=== PATIENT | male | born 1955 | race Caucasian/White ===

== ENCOUNTER 2017-03-20 11:48 | Emergency (ER) | payer OTHER ==
--- NOTE | 2017-03-20 13:43 | ER Document Report ---
ED Respiratory Problem - General Chief Complaint: Rib Pain Stated Complaint: RIGHT SIDE RIB PAIN Time Seen by Provider: 03/20/17 13:25 Mode of Arrival: Ambulatory Information source: Patient Notes: 61-year-old male presents to ED for pain in his right rib. He states he was lifting large pallets of milk on Monday when the pain started. He states he also had large amounts of blood in his urine on Monday and today. He states he went to his [employer]. doctor and they told him his blood pressure was elevated and he needed to come to the emergency room. He states that he had a stroke 3 or 4 years ago he had some muscle strain elevated blood pressure and has had surgery on hemorrhoids and left knee meniscus. He denies any other medical history. TRAVEL OUTSIDE OF THE [place] IN LAST 30 DAYS: No - HPI Patient complains to provider of: Hurts to breath, Short of breath, Other - Right ribs abdomen and flank pain Onset: Other - Monday Duration: Continuous, Worse/persistent Initiating Event: Other - Injury on Monday Quality of pain: Sharp, Throbbing Severity: Severe Pain Level: 5 Context: Smoker, Other - States he was lifting large polyps of milk on Monday and the pain is been since then. He also has had blood in his urine Monday and today Short of Breath: Moderate Chest pain/discomfort: Constant, Worse with deep breaths Cough: Nonproductive Sputum amount: None Associated symptoms: Other - Hematuria, right rib flank abdomen and back pain Worsened by: Movement sitting lying down Similar symptoms previously: Yes Recently seen / treated by doctor: Yes - Related Data Allergies/Adverse Reactions: No Known Allergies Allergy (Verified 03/20/17 12:07) Past Medical History - General Information source: Patient - Social History Smoking Status: Current Every Day Smoker Cigarette use (# per day): Yes - Pack per day Chew tobacco use (# tins/day): No Smoking Education Provided: Yes - less than 2 minutes Frequency of alcohol use: None Drug Abuse: None 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 Family History: Hypertension Patient has suicidal ideation: No Patient has homicidal ideation: No - Past Medical History Cardiac Medical History: Reports: Hx Hypertension Pulmonary Medical History: Reports: None EENT Medical History: Reports: None Neurological Medical History: Reports: Hx Cerebrovascular Accident - 3 or 4 years ago Endocrine Medical History: Reports: None Renal/ Medical History: Reports: Hx Kidney Stones Malignancy Medical History: Reports None GI Medical History: Reports: None Musculoskeltal Medical History: Reports Hx Musculoskeletal Deformity, Reports Hx Musculoskeletal Trauma Skin Medical History: Reports None Psychiatric Medical History: Reports: None Traumatic Medical History: Reports: None Infectious Medical History: Reports: None Past Surgical History: Reports: Hx Orthopedic Surgery - Left knee meniscus, Other - Internal and external hemorrhoid removal - Immunizations Hx Diphtheria, Pertussis, Tetanus Vaccination: No Review of Systems - Review of Systems Constitutional: No symptoms reported EENT: No symptoms reported Cardiovascular: No symptoms reported Respiratory: Cough, Hurts to breathe, Short of breath Gastrointestinal: Abdominal pain Genitourinary: Flank pain, Hematuria Male Genitourinary: No symptoms reported Musculoskeletal: Back pain Skin: No symptoms reported Hematologic/Lymphatic: No symptoms reported Neurological/Psychological: No symptoms reported -: Yes All other systems reviewed and negative Physical Exam - Vital signs Vitals: Temp Pulse Resp BP Pulse Ox 98.1 F 78 20 190/98 H 96 03/20/17 12:05 03/20/17 12:05 03/20/17 12:05 03/20/17 12:05 03/20/17 12:05 Interpretation: Normal - General General appearance: Appears well, Alert - HEENT Head: Normocephalic, Atraumatic Eyes: Normal Pupils: PERRL - Respiratory Respiratory status: No respiratory distress Chest status: Tender, Pain on movement, Pain with cough, Pain with deep breathing, Other - Hurts to lay down or sit down Breath sounds: Normal Chest palpation: Normal - Cardiovascular Rhythm: Regular Heart sounds: Normal auscultation Murmur: No - Abdominal Inspection: Normal Distension: No distension Bowel sounds: Normal Tenderness: Tender. No: McBurney's point, Miller's sign, Guarding, Rebound Organomegaly: No organomegaly - Back Back: Normal, Tender. No: Deformity/step-off, CVA tenderness, Vertebra tenderness, Scars, Scoliosis, Wounds - Extremities General upper extremity: Normal inspection, Nontender, Normal color, Normal ROM , Normal temperature General lower extremity: Normal inspection, Nontender, Normal color, Normal ROM , Normal temperature, Normal weight bearing. No: Abril's sign - Neurological Neuro grossly intact: Yes Cognition: Normal Orientation: AAOx4 Madelyn Coma Scale Eye Opening: Spontaneous Madelyn Coma Scale Verbal: Oriented Chandler Coma Scale Motor: Obeys Commands Madelyn Coma Scale Total: 15 Speech: Normal Motor strength normal: LUE, RUE, LLE, RLE Sensory: Normal - Psychological Associated symptoms: Normal affect, Normal mood - Skin Skin Temperature: Warm Skin Moisture: Dry Skin Color: Normal Course - Re-evaluation Re-evalutation: 03/20/17 20:20 I have discussed this patient's x-rays and labs as they have returned with Dr. Torres. The CT abdomen pelvis and chest were ordered is positive chest x- ray and hematuria. Discussed the results of the CT abdomen and pelvis and and chest with patient as well as the lab results that showed he has metastatic cancer and aortic aneurysm renal failure and a pleural effusion with Dr. Torres and then with the patient. After discussing the CT and lab work with the patient, patient became very tearful and upset and stated he needed to go home right now and think this over. Patient states he could not be transferred he needed to go home and think everything out before he received any more treatment. Dr. Torres was was asked to come in and speak with the patient. She reiterated that for the concerns with him going home and with the risk with him going home. Patient was adamant that he wanted to go home and think about what we have told him. He states he understands the risk that he needs to go home. He requested that oncology be called. Dr. Smith was called and given a review of the findings. Dr. Smith said that the patient should call him and schedule a follow-up visit to discuss the results and the plan of care. Patient was given a copy of all labs x-ray and CT. He was given name and number for Dr. Smith. He states he will call the doctor when he can grasp what is going on. Patient was adamant that he did not want to stay in the hospital or be transferred. Patient was given an lisinopril for his blood pressure and a prescription for lisinopril and Percocet for his pain and blood pressure and discharged home AGAINST MEDICAL ADVICE. - Vital Signs Vital signs: Temp Pulse Resp BP Pulse Ox 98.2 F 78 15 198/108 H 98 03/20/17 20:08 03/20/17 20:08 03/20/17 20:08 03/20/17 20:08 03/20/17 20:08 - Laboratory Result Diagrams: 03/20/17 16:45 03/20/17 16:45 Laboratory results interpreted by me: 03/20/17 03/20/17 03/20/17 14:30 16:45 16:45 RDW 15.3 H Plt Count 40 L Lymphocytes % 12.8 L Chloride 108 H Carbon Dioxide 21 L BUN 55 H Creatinine 3.79 H Est GFR ( Amer) 20 L Est GFR (Non-Af Amer) 16 L Total Bilirubin 2.3 H Direct Bilirubin 0.5 H AST 85 H Urine Protein >=500 H Urine Blood LARGE H Ur Leukocyte Esterase TRACE H - Diagnostic Test Radiology reviewed: Image reviewed, Reports reviewed Discharge - Discharge Clinical Impression: Pleural effusion, Abdominal aortic aneurysm 5.8 cm, Nonobstructing kidney stones both kidney, extensive pelvic adenopathy most likely malig, 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 At this time you have elected to go home instead of being transferred to a tertiary hospital. I have called the oncologist as we discussed and given him the results of your labs and CAT scan. He will be expecting you to call tomorrow for the next day to schedule an appointment for follow-up. I will send you home with blood pressure medicine lisinopril. Pain medication Percocet. Instructions to follow-up with the oncologist. HIGH BLOOD PRESSURE REQUIRING TREATMENT: Your blood pressure is high. This is called "hypertension." Today's reading was __190/98 (normal is less than 140/90). Your history and exam suggest that this is not a temporary problem. You need treatment of your blood pressure. If left untreated, high blood pressure greatly increases your risk of heart attack and stroke. Please don't ignore this problem. If you have blood pressure medicine but aren't using it regularly, start taking it again. Some simple things you can do to help are: Get some aerobic exercise for at least 20 minutes on a daily basis. (See your doctor before beginning any new exercise program.) Eat a low-fat diet. Lose excess weight. Avoid salty foods and avoid adding salt to any of the foods you eat. Avoid diet pills, decongestants, "energizing" herbs, and other medicines that elevate blood pressure. There are many different medicines that treat blood pressure. If your medication causes unpleasant side effects, call your doctor. There are others you can try. Treating hypertension is a life-long investment in your health. ANGIOTENSIN CONVERTING ENZYME INHIBITOR MEDICATION: "CAROLINE inhibitor" drugs are used to lower high blood pressure (or to reduce the "work" of the heart in patients with heart failure). These drugs block an enzyme that makes your blood vessels constrict and makes you retain salt. The result is lower blood pressure. CAROLINE inhibitors cause few side effects. The most common side effect is a dry nagging cough. Occasionally, lightheadedness may occur while you get used to the medicine. Some patients may retain extra potassium (this is a problem if you are taking potassium supplements, potassium-containing salt substitutes, or a potassium-retaining drug such as triamterene, spironolactone, or amiloride) . If you are taking lithium, the lithium level must be rechecked after starting an CAROLINE inhibitor. CAROLINE inhibitors should NOT be used during . Contact the doctor or return if you develop severe lightheadedness, wheeze , weakness, palpitations or other new symptoms. Aortic Aneurysm We have found an aortic aneurysm. This is a dilation of the aorta. About 1 of every 50 people develop an aortic aneurysm. The aneurysm can be dangerous if it begins to expand, or ruptures. At this time, there's no immediate danger. If an aortic aneurysm is small (less than two inches in width), we can just check the aneurysm again in a few months. Usually, we do this with an ultrasound or CT scan. If the aneurysm is large, the danger of rupture increases dramatically. Rupture is usually fatal. So large aneurysms are fixed with surgery. We'll arrange for you to see a specialist for repair of your aneurysm. Return at once if you develop abdominal pain, back pain, or lightheadedness , or if you feel a new mass in your abdomen Oral Narcotic Medication You have been given a prescription for pain control. This medication is a narcotic. It's best taken with food, as nausea can result if taken on an empty stomach. Don't operate machinery or drive within six hours of taking this medication. Do not combine this medicine with alcohol, or with any medication which can cause sedation (such as cold tablets or sleeping pills) unless you get permission from the physician. Narcotics tend to cause constipation. If possible, drink plenty of fluids and eat a diet high in fiber and fruits. FOLLOW-UP CARE: If you have been referred to a physician for follow-up care, call the physician s office for an appointment as you were instructed or within the next two days. If you experience worsening or a significant change in your symptoms, notify the physician immediately or return to the Emergency Department at any time for re-evaluation. Prescriptions: Lisinopril 20 mg PO DAILY #30 tablet Oxycodone HCl/Acetaminophen [Percocet 5-325 mg Tablet] 1 - 2 tab PO ASDIR PRN # 25 tablet PRN Reason: Forms: Elevated Blood Pressure, Smoking Cessation Education Referrals: SADIA SMITH MD [ACTIVE STAFF] - Follow up as needed
--- NOTE | 2017-03-20 14:33 | RADIOLOGY REPORT (SQ) ---
EXAM DESCRIPTION: RIBS RIGHT W/PA CHEST COMPLETED DATE/TIME: 03/20/2017 2:07 pm REASON FOR STUDY: pain to right chest and back after lifting at work COMPARISON: None. TECHNIQUE: Frontal view of the chest and additional views of the right ribs acquired. NUMBER OF VIEWS: Three view. LIMITATIONS: None. FINDINGS: FRONTAL CXR: There is a right pleural effusion. No evidence of pneumothorax. No consolid ation. RIBS: No displaced rib fractures. No lytic or blastic bony lesions. OTHER: No other significant finding. IMPRESSION: No displaced rib fractures. There is a small right pleural effusion. COMMENT: SITE OF TRAUMA/COMPLAINT MARKED/STAMP COMPLETED: NO. TECHNICAL DOCUMENTATION: JOB ID: [id number] [employer]- All Rights Reserved
[2017-03-20 15:34] LABS: APPEARANCE,URINE CLOUDY; BILIRUBIN,URINE NEGATIVE (NEGATIVE); GLUCOSE, URINE NEGATIVE (NEGATIVE); KETONES,URINE NEGATIVE (NEGATIVE); URINE SPECIFIC GRAVITY 1.014
[2017-03-20 15:35] LABS: LEUKOCYTE ESTERASE,URINE TRACE (NEGATIVE); NITRITE,URINE NEGATIVE (NEGATIVE); PROTEIN,URINE >=500 mg/dL (NEGATIVE); UROBILINOGEN,URINE NEGATIVE mg/dL (<2.0)
[2017-03-20 15:36] LABS: RBC,URINE TOO NUMEROUS TO CNT /HPF
[2017-03-20] MEDS ORDERED: OXYCODONE-ACETAMINOPHEN 5-325 MG TABLET PO ONE (16:36)
[2017-03-20 17:00] LABS: ABSOLUTE BASOPHILS # (AUTO) 0.1 10^3/uL (0.0-0.2); ABSOLUTE EOSINOPHILS # (AUTO) 0.2 10^3/uL (0.0-0.6); ABSOLUTE LYMPHOCYTES (AUTO) 1.3 10^3/uL (0.5-4.7); ABSOLUTE MONOCYTES (AUTO) 1.1 10^3/uL (0.1-1.4); ABSOLUTE NEUT (AUTO) 7.6 10^3/uL (1.7-8.2); BASOPHILS % (AUTO) 0.7 % (0-2); EOSINOPHILS % (AUTO) 1.5 % (0-6); HEMATOCRIT 42.1 % (37.9-51.0); HEMOGLOBIN 13.9 g/dL (13.5-17.0); HGB HCT DIFFERENCE -0.4; LYMPHOCYTES % (AUTO) 12.8 % (13-45); MEAN CORPUSCULAR HEMOGLOBIN 28.8 pg (27.0-33.4); MEAN CORPUSCULAR HGB CONC 33.1 g/dL (32.0-36.0); MEAN CORPUSCULAR VOLUME 87 fl (80-97); MONOCYTES % (AUTO) 10.7 % (3-13); RED BLOOD COUNT 4.82 10^6/uL (4.35-5.55); RED CELL DISTRIBUTION WIDTH 15.3 % (11.5-14.0); SEGMENTED NEUTROPHILS % (AUTO) 74.3 % (42-78); WHITE BLOOD COUNT 10.3 10^3/uL (4.0-10.5)
[2017-03-20 17:12] LABS: ALANINE AMINOTRANSFERASE 39 U/L (21-72); ALBUMIN 3.8 g/dL (3.5-5.0); ALKALINE PHOSPHATASE 87 U/L (38-126); ANION GAP 13 (5-19); ASPARTATE AMINO TRANSFERASE 85 U/L (17-59); BILIRUBIN,DIRECT 0.5 mg/dL (0.0-0.4); BILIRUBIN,TOTAL 2.3 mg/dL (0.2-1.3); BLOOD UREA NITROGEN 55 mg/dL (7-20); CALCIUM 9.7 mg/dL (8.4-10.2); CARBON DIOXIDE 21 mmol/L (22-30); CHLORIDE 108 mmol/L (98-107); CREATININE RESULT 3.79 mg/dL (0.52-1.25); GLUCOSE 96 mg/dL (75-110); POTASSIUM 3.7 mmol/L (3.6-5.0); SODIUM 141.6 mmol/L (137-145)
--- NOTE | 2017-03-20 18:20 | RADIOLOGY REPORT (SQ) ---
EXAM DESCRIPTION: CT CHEST WITHOUT COMPLETED DATE/TIME: 03/20/2017 5:43 pm REASON FOR STUDY: fall injury pain to chest and flank hematuria COMPARISON: None. TECHNIQUE: CT scan performed of the chest without intravenous contrast. Images reviewed with lung, soft tissue and bone windows. Reconstructed coronal and sagittal MPR images reviewed. All images st ored on PACS. All CT scanners at this facility use dose modulation, iterative reconstruction, and/or weight based d osing when appropriate to reduce radiation dose to as low as reasonably achievable (ALARA). [facility]: Dose Right [facility]: CareDose [facility]: Dose Right [facility]: Teradose 4D [facility]: [employer] RADIATION DOSE: mGy. LIMITATIONS: No technical limitations. FINDINGS: LUNGS AND PLEURA: Moderate right pleural effusion. Patchy density in the right lung base with air bronchograms. The left lung is clear. No pneumothorax. HILAR AND MEDIASTINAL STRUCTURES: No identified masses or abnormal nodes. No obvious aneurysm. HEART AND VASCULAR STRUCTURES: No aneurysm. No pericardial effusion. UPPER ABDOMEN: See separate report of the CT of the abdomen. THYROID AND OTHER SOFT TISSUES: No masses. No adenopathy. BONES: Irregular moth-eaten appearance of the proximal right 8th rib with expansile component. No ac gil bony findings. HARDWARE: None in the chest. OTHER: No other significant findings. IMPRESSION: 1. MODERATE RIGHT PLEURAL EFFUSION. PATCHY DENSITY IN THE RIGHT LUNG BASE MAY BE DUE TO ATELECTASIS VERSUS PNEUMONIA. 2. IRREGULAR EXPANSILE MOTH-EATEN APPEARANCE OF THE PROXIMAL RIGHT 8TH RIB. THIS COULD BE DUE TO MET ASTASIS OR MYELOMA. TECHNICAL DOCUMENTATION: JOB ID: [id number] Quality ID # [id number]: Final reports with documentation of one or more dose reduction techniques (e.g., Au tomated exposure control, adjustment of the mA and/or kV according to patient size, use of iterative reconstruction technique) 2010 [employer]- All Rights Reserved
--- NOTE | 2017-03-20 18:24 | RADIOLOGY REPORT (SQ) ---
EXAM DESCRIPTION: CT ABD/PELVIS NO ORAL OR IV COMPLETED DATE/TIME: 03/20/2017 5:43 pm REASON FOR STUDY: fall injury pain to chest and flank hematuria COMPARISON: None. TECHNIQUE: CT scan of the abdomen and pelvis performed without intravenous or oral contrast. Images reviewed with lung, soft tissue, and bone windows. Reconstructed coronal and sagittal MPR images revi ewed. All images stored on PACS. All CT scanners at this facility use dose modulation, iterative reconstruction, and/or weight based d osing when appropriate to reduce radiation dose to as low as reasonably achievable (ALARA). [facility]: Dose Right [facility]: CareDose [facility]: Dose Right [facility]: Teradose 4D [facility]: [employer] RADIATION DOSE: Up-to-date CT equipment and radiation dose reduction techniques were employed. CTDIv ol: 13.0 mGy. DLP: 969 mGy-cm.mGy. LIMITATIONS: None. FINDINGS: LOWER CHEST: See separate report of the CT of the chest. NON-CONTRASTED LIVER, SPLEEN, ADRENALS: Evaluation limited by lack of IV contrast. Borderline fullne ss of the adrenal glands. No other identified significant masses. PANCREAS: No masses. No peripancreatic inflammatory changes. GALLBLADDER: No identified stones by CT criteria. No inflammatory changes to suggest cholecystitis. RIGHT KIDNEY AND URETER: No suspicious masses. Assessment limited by lack of IV contrast. Numerous calyceal calculi. No hydronephrosis or hydroureter. LEFT KIDNEY AND URETER: No suspicious masses. Assessment limited by lack of IV contrast. Numerous c alyceal calculi. No hydronephrosis or hydroureter. AORTA AND RETROPERITONEUM: Infrarenal abdominal aortic aneurysm with AP measurement of 5.8 cm. No ret roperitoneal masses or adenopathy. BOWEL AND PERITONEAL CAVITY: No obvious masses or inflammatory changes. No free fluid. APPENDIX: Normal. PELVIS, BLADDER, AND ABDOMINAL WALL:Numerous large lymph nodes along the pelvic sidewall bilaterally. Many lymph nodes measure 3- 4 cm with the largest on the left side measuring 5.3 cm. No free fluid . BONES: No significant findings. OTHER: No other significant finding. IMPRESSION: 1. EXTENSIVE PELVIC ADENOPATHY MOST LIKELY DUE TO MALIGNANCY, EITHER LYMPHOMA OR METASTASIS. 2. INFRARENAL ABDOMINAL AORTIC ANEURYSM MEASURING 5.8 CM. 3. NUMEROUS NONOBSTRUCTING CALYCEAL CALCULI IN BOTH KIDNEYS. 4. BORDERLINE FULLNESS OF THE ADRENAL GLANDS. 5. NO ACUTE FINDINGS. TECHNICAL DOCUMENTATION: JOB ID: [id number] Quality ID # [id number]: Final reports with documentation of one or more dose reduction techniques (e.g., Au tomated exposure control, adjustment of the mA and/or kV according to patient size, use of iterative reconstruction technique) 2010 [employer]- All Rights Reserved
[2017-03-20] MEDS ORDERED: LISINOPRIL 10 MG TABLET PO ONE (19:48)
[2017-03-20 20:09] VITALS: BP 198/108
== END 2017-03-20 20:09 | disposition left against medical advice (07) ==
LOC: ER 11:48
DX: R07.81 Pleurodynia (principal); I71.4 Abdominal aortic aneurysm, without rupture; N20.0 Calculus of kidney; R31.9 Hematuria, unspecified; J90 Pleural effusion, not elsewhere classified; N19 Unspecified kidney failure; R59.0 Localized enlarged lymph nodes; R06.02 Shortness of breath; M54.9 Dorsalgia, unspecified; R10.9 Unspecified abdominal pain; C79.9 Secondary malignant neoplasm of unspecified site; I10 Essential (primary) hypertension; F17.210 Nicotine dependence, cigarettes, uncomplicated; Z71.6 Tobacco abuse counseling; Z86.73 Personal history of transient ischemic attack (TIA), and cerebral infarction without residual deficits
CPT/HCPCS: 36415; 71250; 74176; 80053; 81001; 85025; 99284

== ENCOUNTER 2018-02-13 11:08 | Emergency (ER) | payer SELFPAY ==
[2018-02-13] MEDS ORDERED: LORAZEPAM INJ 2 MG/1 ML VIAL IV ONE (11:24)
--- NOTE | 2018-02-13 11:32 | ER Document Report ---
ED General - General Stated Complaint: BACK PAIN Time Seen by Provider: 02/13/18 11:20 Information source: Patient Notes: Patient is a 62-year-old male who states a history only of high blood pressure who presents today stating some lower back pain for around 5 days. He denies any initial trauma. He denies any fevers, abdominal pain, or abdominal swelling. He does state for the last 3-4 days he has had some bilateral lower extremity edema. He denies any chest pain or shortness of breath. Patient states over the last 48 hours his "legs have given out" 3. This is caused him to fall onto his buttocks. He denies any head trauma. He denies any incontinence. Patient states he has a history of some low back pain for around 1 year and purchased a back brace at [facility]. After reviewing the patient's past chart it appears in February 2017 at the patient came in for some pain to his ribs. He had a CT scan of the abdomen and pelvis which showed a 5.8 cm aneurysm to the aorta as well as multiple pelvic like lesions consistent with metastatic cancer as well as a right rib lesion. Patient at that time left AGAINST MEDICAL ADVICE. Patient did not relay this information to me on my interview. Patient was supposed to follow-up with oncology and states that he has not. TRAVEL OUTSIDE OF THE [place] IN LAST 30 DAYS: No - HPI Onset: Other - See above Onset/Duration: Gradual Quality of pain: Achy, Dull Severity: Moderate Pain Level: 3 Associated symptoms: Other - See above Exacerbated by: Movement, Walking Relieved by: Denies Similar symptoms previously: Yes Recently seen / treated by doctor: No - Related Data Allergies/Adverse Reactions: No Known Allergies Allergy (Verified 03/20/17 12:07) Past Medical History - General Information source: Patient - Social History Smoking Status: Unknown if Ever Smoked Cigarette use (# per day): No Chew tobacco use (# tins/day): No Smoking Education Provided: No Frequency of alcohol use: None Drug Abuse: None Family History: Hypertension - Past Medical History Cardiac Medical History: Reports: Hx Hypertension Pulmonary Medical History: Denies: Hx Tuberculosis Neurological Medical History: Reports: Hx Cerebrovascular Accident - 3 or 4 years ago Renal/ Medical History: Reports: Hx Kidney Stones. Denies: Hx Peritoneal Dialysis Musculoskeltal Medical History: Reports Hx Musculoskeletal Deformity, Reports Hx Musculoskeletal Trauma Psychiatric Medical History: Denies: Hx Depression Past Surgical History: Reports: Hx Orthopedic Surgery - Left knee meniscus, Other - Internal and external hemorrhoid removal - Immunizations Hx Diphtheria, Pertussis, Tetanus Vaccination: No Review of Systems - Review of Systems Constitutional: denies: Fever EENT: denies: Eye discharge, Nose discharge Respiratory: denies: Short of breath Gastrointestinal: denies: Abdominal pain, Vomiting Genitourinary: denies: Dysuria Musculoskeletal: Leg swelling Skin: Other - no hives. denies: Rash Neurological/Psychological: Other - no slurred speech -: Yes All other systems reviewed and negative Physical Exam - Vital signs Vitals: Resp Pulse Ox 17 97 02/13/18 11:19 02/13/18 11:19 Notes: Reviewed vital signs and nursing note as charted by RN. CONSTITUTIONAL: Alert and oriented and responds appropriately to questions. Well -appearing; well-nourished HEAD: Normocephalic; atraumatic EYES: PERRL; sclerae non-icteric ENT: Normal nose; no rhinorrhea; moist mucous membranes; pharynx without lesions noted NECK: Supple without meningismus; non-tender CARD: Regular rate and rhythm; no murmurs; symmetric distal pulses RESP: Normal chest excursion without splinting or tachypnea; breath sounds clear and equal bilaterally ABD/GI: Normal bowel sounds; non-distended; soft, non-tender, no abdominal bruits or palpable masses. Patient does have an elevated BMI BACK: The back appears normal with no palpable step-offs, discrete point tenderness, erythema or induration to the midline spine EXT: Patient is able to lift each leg off the bed around 2 inches secondary to pain. Strong distal pulses present with good capillary refill. 2-3+ pitting edema to bilateral shins SKIN: No acute lesions noted NEURO: CN II through XII intact. 5 out of 5 upper extremity strength. 5 out of 5 bilateral plantar flexion. Difficult to assess reflexes secondary to the patient's large body habitus but I do not detect any hypo-or hyperreflexia PSYCH: The patient's mood and manner are appropriate. Grooming and personal hygiene are appropriate Course - Re-evaluation Re-evalutation: 02/13/18 11:32 Given the above history and physical examination, I will obtain basic labs, troponin, BNP, and obtain a CT scan with IV contrast of the abdomen and pelvis. I would like to evaluate for any obvious bony degeneration secondary to possible metastases. If this is unremarkable, I will most likely obtain an MRI of the lumbar spine. 02/13/18 12:19 EKG shows a heart rate of 84, normal sinus rhythm, normal axis, no obvious ST elevation or question. Minimally prolonged QT interval. 02/13/18 14:[address] scan as recorded. I spoken directly to the radiologist. I have ordered bilateral Doppler lower extremity studies and believe that the patient requires transfer to a higher level of care that has neurosurgical capabilities. Patient is requesting [facility]. 02/13/18 16:13 I have called and spoke to Dr. Mcintyre at [facility] after [facility] is at maximum capacity. I have explained the full history and physical examination and I read the CT scan report. He states he would like dexamethasone 4 mg every 6 hours. He states he would also like a urine analysis performed. Labs and electrolytes otherwise as recorded. No change in examination. - Vital Signs Vital signs: Temp Pulse Resp BP Pulse Ox 97.6 F 17 144/123 H 97 02/13/18 16:13 02/13/18 14:00 02/13/18 11:20 02/13/18 14:00 - Laboratory Result Diagrams: 02/13/18 11:55 02/13/18 11:55 Laboratory results interpreted by me: 02/13/18 02/13/18 11:55 11:55 Hgb 13.3 L RDW 14.9 H Seg Neutrophils % 81.8 H Lymphocytes % 10.4 L Potassium 3.2 L Glucose 115 H Discharge - Discharge Clinical Impression: Pelvic lymphadenopathy, Lower extremity edema, Spinal cord lesion, Metastatic cancer Condition: Serious Disposition: [facility]
[2018-02-13 12:35] LABS: ABSOLUTE EOSINOPHILS # (AUTO) 0.1 10^3/uL (0.0-0.6); ABSOLUTE LYMPHOCYTES (AUTO) 0.8 10^3/uL (0.5-4.7); ABSOLUTE MONOCYTES (AUTO) 0.4 10^3/uL (0.1-1.4); BASOPHILS % (AUTO) 0.5 % (0-2); EOSINOPHILS % (AUTO) 1.7 % (0-6); HEMATOCRIT 38.6 % (37.9-51.0); HEMOGLOBIN 13.3 g/dL (13.5-17.0); LYMPHOCYTES % (AUTO) 10.4 % (13-45); MEAN CORPUSCULAR HEMOGLOBIN 29.6 pg (27.0-33.4); MEAN CORPUSCULAR HGB CONC 34.5 g/dL (32.0-36.0); MEAN CORPUSCULAR VOLUME 86 fl (80-97); MONOCYTES % (AUTO) 5.6 % (3-13); PLATELET COUNT 207 10^3/uL (150-450); RED BLOOD COUNT 4.51 10^6/uL (4.35-5.55); RED CELL DISTRIBUTION WIDTH 14.9 % (11.5-14.0); SEGMENTED NEUTROPHILS % (AUTO) 81.8 % (42-78); TOTAL CELLS COUNTED % (AUTO) 100 %; WHITE BLOOD COUNT 7.4 10^3/uL (4.0-10.5)
[2018-02-13 12:55] LABS: ALANINE AMINOTRANSFERASE 26 U/L (21-72); ALBUMIN 4.1 g/dL (3.5-5.0); ALKALINE PHOSPHATASE 112 U/L (38-126); ANION GAP 13 (5-19); ASPARTATE AMINO TRANSFERASE 35 U/L (17-59); BILIRUBIN,DIRECT 0.3 mg/dL (0.0-0.4); BILIRUBIN,TOTAL 0.6 mg/dL (0.2-1.3); BLOOD UREA NITROGEN 16 mg/dL (7-20); CALCIUM 9.5 mg/dL (8.4-10.2); CARBON DIOXIDE 27 mmol/L (22-30); CHLORIDE 103 mmol/L (98-107); GLUCOSE 115 mg/dL (75-110); NEONATAL BILIRUBIN RESULT 0.3 mg/dL (0.1-1.1); POTASSIUM 3.2 mmol/L (3.6-5.0); SODIUM 143.3 mmol/L (137-145); TOTAL PROTEIN 6.9 g/dL (6.3-8.2)
[2018-02-13 13:06] LABS: TROPONIN I 0.022 ng/mL
--- NOTE | 2018-02-13 13:37 | EKG REPORT ---
SEVERITY:- ABNORMAL ECG - SINUS RHYTHM PROBABLE LEFT ATRIAL ABNORMALITY PROLONGED QT INTERVAL : Confirmed by: Brent Guaman MD 13-Feb-2018 13:36:13
--- NOTE | 2018-02-13 14:19 | RADIOLOGY REPORT (SQ) ---
EXAM DESCRIPTION: CT ABD/PELVIS WITH IV ONLY COMPLETED DATE/TIME: 02/13/2018 1:57 pm REASON FOR STUDY: 4, metastatic cancer/lumbar pain/leg weakness COMPARISON: CT abdomen and pelvis 05/29/2010, 03/20/2017 TECHNIQUE: CT scan of the abdomen and pelvis performed using helical scanning technique with dynamic intravenous contrast injection. No oral contrast. Images reviewed with lung, soft tissue, and bone windows. Reconstructed coronal and sagittal MPR images reviewed. Delayed images for evaluation of the urinary system also acquired. All images stored on PACS. All CT scanners at this facility use dose modulation, iterative reconstruction, and/or weight based d osing when appropriate to reduce radiation dose to as low as reasonably achievable (ALARA). [facility]: Dose Right [facility]: CareDose [facility]: Dose Right [facility]: Teradose 4D [facility]: Merus CONTRAST TYPE AND DOSE: contrast/concentration: Isovue 370.00 mg/ml; Total Contrast Delivered: 100.0 ml; Total Saline Delivered: 61.9 ml RENAL FUNCTION: Creatinine 0.88 RADIATION DOSE: CT Rad equipment meets quality standard of care and radiation dose reduction techniq ues were employed. CTDIvol: 12.4 - 17.4 mGy. DLP: 1816 mGy-cm.. LIMITATIONS: None. FINDINGS: LOWER CHEST: There is a permeative lytic pattern throughout the right posterior 8th rib, r ight TB transverse process, pedicle, lamina and vertebral body. Adjacent abnormal right paraspinal s oft tissue bulges into the pleural space. Soft tissue contrast is limited however findings are prese nt worrisome for epidural tumor at the T8 level. This could potentially cause cord compression, and MRI of the thoracic spine is recommended for followup. These findings were discussed with Dr. Hernandez LIVER: Normal size. No masses. No dilated ducts. SPLEEN: Normal size. No focal lesions. PANCREAS: No masses. No significant calcifications. No adjacent inflammation or peripancreatic fluid collections. Pancreatic duct not dilated. GALLBLADDER: No identified stones by CT criteria. No inflammatory changes to suggest cholecystitis. ADRENAL GLANDS: No significant masses or asymmetry. RIGHT KIDNEY AND URETER: No solid masses. Multiple old right-sided intrarenal nonobstructive stones less than 7 mm in size. Stones measure 700 Hounsfield units. No hydronephrosis or hydroureter. LEFT KIDNEY AND URETER: No solid masses. Multiple old left-sided intrarenal nonobstructive stones l ess than 5 mm in size. No hydronephrosis or hydroureter. AORTA AND VESSELS: 6.2 x 5.1 cm unruptured infrarenal abdominal aortic aneurysm (was 5.9 x 4.8 cm on 03/20/2017). No significant visceral artery stenosis. Inferior mesenteric artery is patent. RETROPERITONEUM: There is diffuse adenopathy in the para-aortic and aortocaval regions. Massive lymp h nodes are seen along the bilateral common and external iliac vessels. On the right side, a conglom erate mass of adenopathy is present 12 x 4 cm in size in the pelvis along the iliac vessels. On the left side, a conglomerate mass of adenopathy is present 14 x 6.4 cm in size along the left iliac vess els. These likely cause bilateral external iliac vein stenosis or occlusion. These findings were di scussed with Dr. Hernandez. BOWEL AND PERITONEAL CAVITY: No masses or inflammatory changes. No free fluid or peritoneal masses. APPENDIX: Normal. PELVIS: Massive adenopathy. Enlarged indistinct prostate gland. No free pelvic fluid. ABDOMINAL WALL: No masses. No hernias. BONES: T8 lytic permeative pattern worrisome for bony metastatic disease. At the T8 level there is b lurring of the epidural fat in the spinal canal, worrisome for epidural tumor. Other smaller bony me tastatic lesions are suspected in the L3 vertebral body, L4 vertebral body and posterior inferior cor ner of T12. OTHER: No other significant finding. IMPRESSION: Massive pelvic adenopathy with mass effect on the bilateral external iliac veins. Veins may be occluded. 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 This may be causing cord compression and MRI of the thoracic and lumbar spine with contrast is recom mended Unruptured 6.2 x 5.1 cm infrarenal abdominal aortic aneurysm Above findings were discussed with Dr. Hernandez TECHNICAL DOCUMENTATION: JOB ID: [id number] Quality ID # [id number]: Final reports with documentation of one or more dose reduction techniques (e.g., Au tomated exposure control, adjustment of the mA and/or kV according to patient size, use of iterative reconstruction technique) 2010 [employer]- All Rights Reserved Reading location - IP/workstation name: [email or web address]
[2018-02-13] MEDS ORDERED: HYDROMORPHONE HCL INJ/PF 2 MG/ML AMPULE IV ONE (14:33)
[2018-02-13] MEDS: DEXAMETHASONE SOD PHOS INJ 10 MG/1 ML VIAL IV SCH ×2 (16:31→22:30)
--- NOTE | 2018-02-13 16:34 | RADIOLOGY REPORT (SQ) ---
EXAM DESCRIPTION: VENOUS BILATERAL LOWER COMPLETED DATE/TIME: 02/13/2018 4:26 pm REASON FOR STUDY: 4, BLE EDEMA COMPARISON: None. TECHNIQUE: Dynamic and static george scale and color images acquired of both lower extremity venous sy stems. Selected spectral images acquired with additional compression and augmentation maneuvers. Imag es stored on PACS. LIMITATIONS: None. FINDINGS: RIGHT LEG COMMON FEMORAL AND FEMORAL: Normal phasicity, compression and augmentation. No visualized echogenic m aterial on george scale. No defects on color images. POPLITEAL: Normal compression and augmentation. No visualized echogenic material on george scale. No de fects on color images. CALF VESSELS: Normal compression and augmentation. No visualized echogenic material on george scale. No defects on color image. GSV AND SSV: Normal compression. No visualized echogenic material on george scale. No defects on color images. ANY DEEP VENOUS INSUFFICIENCY: No reflux on Valsalva. ANY EVIDENCE OF POPLITEAL CYST: No. OTHER: Diffuse subcutaneous edema. LEFT LEG COMMON FEMORAL AND FEMORAL: Normal phasicity, compression and augmentation. No visualized echogenic m aterial on george scale. No defects on color images. POPLITEAL: Normal compression and augmentation. No visualized echogenic material on george scale. No de fects on color images. CALF VESSELS: Normal compression and augmentation. No visualized echogenic material on george scale. No defects on color images. GSV AND SSV: Normal compression. No visualized echogenic material on george scale. No defects on color images. ANY DEEP VENOUS INSUFFICIENCY: No reflux on Valsalva. ANY EVIDENCE POPLITEAL CYST: No. OTHER: Diffuse subcutaneous edema IMPRESSION: NO EVIDENCE DVT OR SVT IN EITHER LEG. Diffuse bilateral subcutaneous edema throughout both legs TECHNICAL DOCUMENTATION: JOB ID: [id number] [email or web address] All Rights Reserved Reading location - IP/workstation name: [email or web address]
[2018-02-13 21:47] LABS: APPEARANCE,URINE SLIGHTLY-CLOUDY; BILIRUBIN,URINE NEGATIVE (NEGATIVE); COLOR,URINE YELLOW; GLUCOSE, URINE NEGATIVE (NEGATIVE); KETONES,URINE NEGATIVE (NEGATIVE); LEUKOCYTE ESTERASE,URINE NEGATIVE (NEGATIVE); NITRITE,URINE NEGATIVE (NEGATIVE); PROTEIN,URINE 100 mg/dL (NEGATIVE); URINE SPECIFIC GRAVITY 1.033; UROBILINOGEN,URINE NEGATIVE mg/dL (<2.0)
[2018-02-14] MEDS ORDERED: HYDROMORPHONE HCL INJ/PF 2 MG/ML AMPULE IV ONE ×2 (01:06→11:20)
[2018-02-14] MEDS: DEXAMETHASONE SOD PHOS INJ 10 MG/1 ML VIAL IV SCH ×2 (04:04→11:28)
--- NOTE | 2018-02-14 09:28 | ER Document Report ---
Doctor's Note Notes: 02/14/18 09:27 I called and updated the admitting transfer team of the patient's condition including some numbness to bilateral legs and some urinary incontinence. They are trying to make room for bed for transfer.
[2018-02-14] MEDS ORDERED: LORAZEPAM INJ 2 MG/1 ML VIAL IV ONE (10:51)
[2018-02-14] MEDS ORDERED: ONDANSETRON 4 MG TAB.RAPDIS ONE (11:43)
[2018-02-14 12:30] VITALS: BP 129/73
== END 2018-02-14 12:30 | disposition short-term general hospital (02) ==
LOC: ER 11:08
DX: R20.0 Anesthesia of skin (principal); R60.9 Edema, unspecified; G95.9 Disease of spinal cord, unspecified; C79.9 Secondary malignant neoplasm of unspecified site; R32 Unspecified urinary incontinence; I71.9 Aortic aneurysm of unspecified site, without rupture; Z86.73 Personal history of transient ischemic attack (TIA), and cerebral infarction without residual deficits; Z87.442 Personal history of urinary calculi
CPT/HCPCS: 93005; 96376; 99285; 51701; 51702; 96374; 96375; 36415; 85025; 80053; 81001; 84484; 83880; 93970; 74177; 93010; S0119; J1170 ×2; J2060 ×2; J1100 ×2